=== PATIENT | male | born 1965 | race American Indian/Alaskan Native ===

== ENCOUNTER 2017-07-07 12:30 | Emergency (ER) | payer MEDICARE, OTHER ==
[2017-07-07] MEDS ORDERED: NORCO 5/325 PO ONE (14:09)
[2017-07-07 14:31] LABS: Basophils # (Auto) 0.1 K/mm3 (0.0-0.1); Basophils % (Auto) 1.1 % (0.0-1.8); Eosinophils # (Auto) 0.2 K/mm3 (0.0-0.4); Eosinophils % (Auto) 3.3 % (0.0-4.3); Hematocrit 40.4 % (35.5-45.6); Hemoglobin 13.3 gm/dl (11.8-15.2); Lymphocytes # (Auto) 1.6 K/mm3 (1.2-5.4); Lymphocytes % (Auto) 22.9 % (13.4-35.0); Mean Corpuscular HGB Conc 33 % (32-34); Mean Corpuscular Hemoglobin 27 pg (28-32); Mean Corpuscular Volume 83 fl (84-94); Monocytes # (Auto) 0.9 K/mm3 (0.0-0.8); Monocytes % (Auto) 12.7 % (0.0-7.3); Platelet Count 298 K/mm3 (140-440); Red Blood Count 4.89 M/mm3 (3.65-5.03); Red Cell Distribution Width 14.2 % (13.2-15.2)
[2017-07-07] MEDS ORDERED: NACL ONE (14:40)
[2017-07-07 14:49] LABS: Calcium 9.3 mg/dL (8.4-10.2)
[2017-07-07] MEDS ORDERED: NACL 0.9% 1000 ML 1,000 ML IV ONE (16:14)
--- NOTE | 2017-07-07 16:18 | Emergency Department Report ---
HPI - HPI HPI: The patient is a 51-year-old male with a history of CK D, chronic back pain, and CAD with stent placement one week ago, whom presents for evaluation of swelling and pain to the back. The patient reports a few area of swelling and pain to the left mid back for the past 2-3 weeks. He states that the pain and swelling have improved but have been constant. His pain is Currently mild to moderate in severity, sharp in quality, exacerbated with lying on the back. The patient denies blunt trauma to the back, fall, chest pain, dyspnea, abdominal pain, fever, chills, night sweats, saddle anesthesia, paresthesias, numbness or tingling in the legs, leg weakness, urine or bowel incontinence or retention, difficulty ambulating, or other focal neurological deficits. <KALYN PEREZ - Last Filed: 07/07/17 17:32> <MARBELLA GARZA - Last Filed: 07/07/17 21:43> - General Chief Complaint: Back Pain/Injury Time Seen by Provider: 07/07/17 13:28 ED Past Medical Hx - Past Medical History Hx Hypertension: Yes Hx Psychiatric Treatment: Yes (depression) Additional medical history: elevated cholesterol,neuropathy,insomnia - Surgical History Additional Surgical History: heart attack 07/02/2017 with stent, T 7-11 back surgery,c4-5 surgery - Social History Smoking Status: Current Every Day Smoker Substance Use Type: Alcohol <KALYN PEREZ - Last Filed: 07/07/17 17:32> <MARBELLA GARZA - Last Filed: 07/07/17 21:43> - Medications Home Medications: Home Medications Medication Instructions Recorded Confirmed Last Taken Type Acetaminophen/Codeine [Tylenol 1 tab PO Q6H PRN #10 tab 07/07/17 Unknown Rx /Codeine # 3 tab] Sulfamethoxazole/Trimethoprim 1 each PO BID #14 tablet 07/07/17 Unknown Rx [Bactrim DS TAB] ED Review of Systems ROS: Stated complaint: BACK PAIN Other details as noted in HPI Constitutional: denies: fever ENT: denies: throat or neck pain Respiratory: denies: cough, shortness of breath Cardiovascular: denies: chest pain Endocrine: denies unexplained weight loss or gain Gastrointestinal: denies: abdominal pain, nausea Genitourinary: denies: dysuria Musculoskeletal: reports back pain denies: leg swelling Skin: denies: rash Neurological: denies: headache Hematological/Lymphatic: denies: easy bleeding or easy bruising Psych: denies sadness or hopelessness <KALYN PEREZ P - Last Filed: 07/07/17 17:32> ROS: Stated complaint: BACK PAIN Other details as noted in HPI <MARBELLA GARZA - Last Filed: 07/07/17 21:43> Physical Exam - Physical Exam Vital Signs: Vital Signs 07/07/17 07/07/17 12:33 13:38 Temperature 98.6 F 98.3 F Pulse Rate 76 71 Respiratory 18 16 Rate Blood Pressure 109/65 Blood Pressure 116/69 [Left] O2 Sat by Pulse 100 97 Oximetry Physical Exam: General: well-nourished, well-developed, no acute distress Head: Normocephalic, atraumatic Eyes: normal sclera ENT: Mucous membranes are pink and moist Neck: trachea midline, neck supple, No neck stiffness, no cervical adenopathy Respiratory: Breath sounds equal bilaterally, no wheezing, rales, or rhonchi Cardio: S1 and S2 present, no murmurs, rubs, gallops, capillary refill is brisk Abdomen: Normoactive bowel sounds, soft abdomen, no rigidity, no guarding or rebound tenderness Chest WALL/Back: No tenderness to palpation of the chest wall, approximately 5 cm x 5cm area of swelling left of the and mild hyperpigmentation midline of the mid thoracic back, no open wound or drainage, Musc: No pitting edema Skin: No rash Neuro: no facial drooping, normal speech Psych: Normal affect <KALYN PEREZ P - Last Filed: 07/07/17 17:32> - Physical Exam Vital Signs: Vital Signs 07/07/17 07/07/17 07/07/17 12:33 13:32 13:38 Temperature 98.6 F 98.3 F Pulse Rate 76 71 Respiratory 18 16 Rate Blood Pressure 109/65 Blood Pressure 116/69 [Left] O2 Sat by Pulse 100 98 97 Oximetry 07/07/17 07/07/17 07/07/17 13:45 14:00 14:15 Temperature Pulse Rate 58 L Respiratory Rate Blood Pressure 116/69 112/64 112/64 Blood Pressure [Left] O2 Sat by Pulse 96 96 99 Oximetry 07/07/17 07/07/17 07/07/17 14:31 14:45 15:00 Temperature Pulse Rate 60 59 L Respiratory 8 L 20 Rate Blood Pressure 112/64 116/69 112/64 Blood Pressure [Left] O2 Sat by Pulse 99 Oximetry 07/07/17 07/07/17 07/07/17 15:15 15:31 15:45 Temperature Pulse Rate 64 61 58 L Respiratory 25 H 22 24 Rate Blood Pressure 112/64 112/64 112/64 Blood Pressure [Left] O2 Sat by Pulse Oximetry 07/07/17 07/07/17 07/07/17 16:00 16:15 16:31 Temperature Pulse Rate 58 L 56 L 61 Respiratory 14 22 19 Rate Blood Pressure 116/69 116/69 116/69 Blood Pressure [Left] O2 Sat by Pulse 94 Oximetry 07/07/17 07/07/17 07/07/17 16:45 17:00 17:15 Temperature Pulse Rate 64 56 L 58 L Respiratory 18 20 12 Rate Blood Pressure 116/69 128/73 116/69 Blood Pressure [Left] O2 Sat by Pulse 96 96 97 Oximetry 07/07/17 07/07/17 07/07/17 18:37 18:46 19:01 Temperature Pulse Rate 58 L 56 L 58 L Respiratory 17 19 13 Rate Blood Pressure 130/83 130/83 143/84 Blood Pressure [Left] O2 Sat by Pulse 96 96 95 Oximetry <MARBELLA GARZA - Last Filed: 07/07/17 21:43> ED Course Vital Signs 07/07/17 07/07/17 12:33 13:38 Temperature 98.6 F 98.3 F Pulse Rate 76 71 Respiratory 18 16 Rate Blood Pressure 109/65 Blood Pressure 116/69 [Left] O2 Sat by Pulse 100 97 Oximetry <KALYN PEREZ - Last Filed: 07/07/17 17:32> Vital Signs 07/07/17 07/07/17 07/07/17 12:33 13:32 13:38 Temperature 98.6 F 98.3 F Pulse Rate 76 71 Respiratory 18 16 Rate Blood Pressure 109/65 Blood Pressure 116/69 [Left] O2 Sat by Pulse 100 98 97 Oximetry 07/07/17 07/07/17 07/07/17 13:45 14:00 14:15 Temperature Pulse Rate 58 L Respiratory Rate Blood Pressure 116/69 112/64 112/64 Blood Pressure [Left] O2 Sat by Pulse 96 96 99 Oximetry 07/07/17 07/07/17 07/07/17 14:31 14:45 15:00 Temperature Pulse Rate 60 59 L Respiratory 8 L 20 Rate Blood Pressure 112/64 116/69 112/64 Blood Pressure [Left] O2 Sat by Pulse 99 Oximetry 07/07/17 07/07/17 07/07/17 15:15 15:31 15:45 Temperature Pulse Rate 64 61 58 L Respiratory 25 H 22 24 Rate Blood Pressure 112/64 112/64 112/64 Blood Pressure [Left] O2 Sat by Pulse Oximetry 07/07/17 07/07/17 07/07/17 16:00 16:15 16:31 Temperature Pulse Rate 58 L 56 L 61 Respiratory 14 22 19 Rate Blood Pressure 116/69 116/69 116/69 Blood Pressure [Left] O2 Sat by Pulse 94 Oximetry 07/07/17 07/07/17 07/07/17 16:45 17:00 17:15 Temperature Pulse Rate 64 56 L 58 L Respiratory 18 20 12 Rate Blood Pressure 116/69 128/73 116/69 Blood Pressure [Left] O2 Sat by Pulse 96 96 97 Oximetry 07/07/17 07/07/17 07/07/17 18:37 18:46 19:01 Temperature Pulse Rate 58 L 56 L 58 L Respiratory 17 19 13 Rate Blood Pressure 130/83 130/83 143/84 Blood Pressure [Left] O2 Sat by Pulse 96 96 95 Oximetry <MARBELLA GARZA - Last Filed: 07/07/17 21:43> - I & D Back Type of Procedure: Simple Site: mid back Blade Size: 11 I & D Procedure: betadine prep, sterile drapes applied, gauze wick placed Progress: Patient was infected sebaceous cyst CT showed abscess, patient was consented for I&D informed of risks including infection bleeding, he was prepped with sterile prep 15 mL's of 1% lidocaine plain with 11 blade with removal of pus pocket and some sebaceous material patient tolerated w/o com[p. <MARBELLA GARZA - Last Filed: 07/07/17 21:43> ED Medical Decision Making - Lab Data Result diagrams: 07/07/17 14:20 07/07/17 14:20 - Medical Decision Making The patient was seen and examined by myself. The patient is placed on a manager cardiac and continuous pulse ox. On initial evaluation, the patient was found to be in no distress. Evaluation orders were placed. The patient was given pain medicine. Lab results revealed mildly elevated creatinine of 1.7, grossly a patient baseline of 1.5-1.6. The patient is given 1 L normal saline fluid bolus for treatment of dehydration and elevated creatinine. CT scan of the back is pending <KALYN PEREZ - Last Filed: 07/07/17 17:32> - Lab Data Result diagrams: 07/07/17 14:20 07/07/17 14:20 - Radiology Data Radiology results: report reviewed - Medical Decision Making CT shows abscess patient was verbally consented abscess was drained is consistent with infected sebaceous cyst we did remove the pus and some of the sebaceous material he will need follow-up with surgery here we placed on antibiotics <MARBELLA GARZA - Last Filed: 07/07/17 21:43> Critical care attestation.: If time is entered above; I have spent that time in minutes in the direct care of this critically ill patient, excluding procedure time. <KALYN PEREZ - Last Filed: 07/07/17 17:32> Critical care attestation.: If time is entered above; I have spent that time in minutes in the direct care of this critically ill patient, excluding procedure time. <MARBELLA GARZA - Last Filed: 07/07/17 21:43> ED Disposition Is pt being admited?: No Does the pt Need Aspirin: No Time of Disposition: 17:36 <KALYN PEREZ - Last Filed: 07/07/17 17:32> Is pt being admited?: No <MARBELLA GARZA - Last Filed: 07/07/17 21:43> Clinical Impression: Infected sebaceous cyst, Status post incision and drainage Disposition: - TO HOME OR SELFCARE Condition: Stable Instructions: Abscess (ED) Additional Instructions: See the doctor listed return immediately if new alarming symptoms medicines as directed Prescriptions: Acetaminophen/Codeine [Tylenol /Codeine # 3 tab] 1 tab PO Q6H PRN #10 tab PRN Reason: Pain Sulfamethoxazole/Trimethoprim [Bactrim DS TAB] 1 each PO BID #14 tablet Referrals: PRIMARY CARE,MD [Primary Care Provider] - 3-5 Days
--- NOTE | 2017-07-07 19:19 | Cat Scan Report ---
FINAL REPORT PROCEDURE: CT THORACIC SPINE W CON TECHNIQUE: Computerized axial tomography of the thoracic spine was performed from C7 - L1 without contrast material. HISTORY: midback mass and pain for 3-4 weeks COMPARISON: No prior studies are available for comparison. FINDINGS: Vertebral alignment and height are within normal limits with normal intervertebral disc spaces. An acute fracture is not identified. Pre and paravertebral soft tissues are within normal limits. Visualized bilateral lungs are clear. Osteophyte formation is noted involving multiple bilateral costovertebral joints. At T2-3 there is a broad-based disc osteophyte complex eccentric to the left resulting in mild degree left lateral recess stenosis. T3-4 disc level is unremarkable. T4-5 disc level is unremarkable. At T5-6 there is mild degree left neural foraminal stenosis secondary to facet degenerative changes. At T6-7 no significant spinal canal or neural foraminal compromise is noted. A T7-8 moderate degree left lateral recess and left neural foraminal stenosis is noted secondary to marginal osteophytes. At T8-9 mild degree right lateral recess and right neural foraminal stenosis secondary to marginal osteophyte formation. At T9-10 moderate degree bilateral lateral recesses and the neural foraminal stenosis is noted secondary to marginal osteophyte formation in the calcification of ligamenta flava. At T10-11 there is evidence of prior T10 laminectomy. Moderate to severe degree bilateral neural foraminal stenosis is noted secondary to bilateral facet arthropathy. At T11-12 there is mild degree right neural foraminal stenosis secondary to facet degenerative changes and ossification of ligamenta flava. 3.7 x 2.7 centimeter well-defined fluid collection is noted in the subcutaneous plane of the left posterior aspect at the level of T10 -11. IMPRESSION: Multilevel thoracic spondylosis as described above. A well-defined fluid collection in the subcutaneous plane of left posterior aspect most likely represents an abscess.
[2017-07-07] MEDS ORDERED: BOOSTRIX IM ONE (20:10)
[2017-07-07] MEDS ORDERED: ATIVAN PO ONE (20:11)
[2017-07-07] MEDS ORDERED: XYLOCAINE 1% 20 mL INFILTRATI ONE (20:11)
[2017-07-07 21:58] VITALS: BP 138/81
== END 2017-07-07 22:13 | disposition home or self-care (01) ==
LOC: ED 12:30
DX: L02.212 Cutaneous abscess of back [any part, except buttock and flank] (principal); L72.3 Sebaceous cyst
CPT/HCPCS: 10060; 36415; 72129; 80048; 83880; 85025; 90471; 90715; 93005; 93010; 96360; 99284; J7030; Q9967

== ENCOUNTER 2017-07-17 07:57 | Emergency (ER) | payer MEDICARE, OTHER ==
[2017-07-17 08:04] VITALS: BP 121/75
--- NOTE | 2017-07-17 10:21 | Emergency Department Report ---
Abscess Boil HPI - HPI Chief Complaint: Skin/Abscess/Foreign Body Stated Complaint: POSS INFECTED CYST Time Seen by Provider: 07/17/17 10:17 Duration: >1 Week Location: Back Severity: Mild History: Yes Previous History (Reports abscess on left back drained in the ER on Jul 07. Completed course of bactrim. Reports symptom improvement presenting today for wound recheck), No Fever, No Pain, No Purulent Drainage, No Numbness, No Foreign Body, No Insect Bite Home Medications: Previous Rx's Medication Instructions Recorded Last Taken Type Acetaminophen/Codeine [Tylenol 1 tab PO Q6H PRN #10 tab 07/07/17 Unknown Rx /Codeine # 3 tab] Sulfamethoxazole/Trimethoprim 1 each PO BID #14 tablet 07/07/17 Unknown Rx [Bactrim DS TAB] Cephalexin [Keflex] 500 mg PO Q12HR 10 Days #20 cap 07/17/17 Unknown Rx Allergies/Adverse Reactions: Allergies Allergy/AdvReac Type Severity Reaction Status Date / Time No Known Allergies Allergy Verified 07/17/17 08:01 ED Review of Systems ROS: Stated complaint: POSS INFECTED CYST Other details as noted in HPI Comment: All other systems reviewed and negative Cardiovascular: other (Reports an AL on Jul 01 followed by cardiology. Reports on brillinta) ED Past Medical Hx - Past Medical History Hx Hypertension: Yes Hx Heart Attack/AMI: Yes Hx Psychiatric Treatment: Yes (depression) Additional medical history: elevated cholesterol,neuropathy,insomnia - Surgical History Additional Surgical History: stent, T 7-11 back surgery,c4-5 surgery - Social History Smoking Status: Current Every Day Smoker Substance Use Type: None - Medications Home Medications: Home Medications Medication Instructions Recorded Confirmed Last Taken Type Acetaminophen/Codeine [Tylenol 1 tab PO Q6H PRN #10 tab 07/07/17 Unknown Rx /Codeine # 3 tab] Sulfamethoxazole/Trimethoprim 1 each PO BID #14 tablet 07/07/17 Unknown Rx [Bactrim DS TAB] Cephalexin [Keflex] 500 mg PO Q12HR 10 Days #20 cap 07/17/17 Unknown Rx ED Abscess Boil Physical Exam - Exam General: Vital signs noted. No distress. Alert and acting appropriately. Size: 3 cm Exam: Yes Surrounding Cellulites/Erythema, Yes Normal Neurologic Exam, Yes Normal Circulation, No Tenderness, No Fluctuance, No Lymphangitis, No Crepitation ED Course Vital Signs 07/17/17 08:01 Temperature 98.8 F Pulse Rate 68 Respiratory 16 Rate Blood Pressure 121/75 O2 Sat by Pulse 100 Oximetry Critical care attestation.: If time is entered above; I have spent that time in minutes in the direct care of this critically ill patient, excluding procedure time. ED Medical Decision Making - Medical Decision Making Patient comfortable. Plan discharge with outpatient follow up. Patient agrees with plan and will return if symptoms worsen. ED Disposition Clinical Impression: Cellulitis Qualifiers: Site of cellulitis: other site Qualified Code(s): L03.818 - Cellulitis of other sites Disposition: DC-01 TO HOME OR SELFCARE Is pt being admited?: No Condition: Stable Instructions: Cellulitis (ED) Prescriptions: Cephalexin [Keflex] 500 mg PO Q12HR 10 Days #20 cap Referrals: [facility] [Outside] - 2-3 Days [facility] [Outside] - 2-3 Days Time of Disposition: 10:21
== END 2017-07-17 10:30 | disposition home or self-care (01) ==
LOC: ED 07:57
DX: L03.312 Cellulitis of back [any part except buttock and flank] (principal); I10 Essential (primary) hypertension; I25.2 Old myocardial infarction; E78.00 Pure hypercholesterolemia, unspecified; F17.200 Nicotine dependence, unspecified, uncomplicated; G62.9 Polyneuropathy, unspecified
CPT/HCPCS: 99281

== ENCOUNTER 2018-10-15 05:58 | Day surgery (SDC) | payer MEDICARE, OTHER ==
--- NOTE | 2018-10-15 07:13 | Anesthesia Day of Surgery ---
Anesthesia Day of Surgery - Day of Surgery Patient Examined: Yes Patient H&P Reviewed: Yes Patient is NPO: Yes
--- NOTE | 2018-10-15 07:14 | Anesthesia Consultation ---
Anesthesia Consult and Med Hx Date of service: 10/15/18 - Airway Anesthetic Teeth Evaluation: Good ROM Head & Neck: Adequate Mental/Hyoid Distance: Adequate Mallampati Class: Class II Intubation Access Assessment: Probably Good - Pulmonary Exam CTA: Yes - Cardiac Exam Cardiac Exam: RRR - Pre-Operative Health Status ASA Pre-Surgery Classification: ASA3 Proposed Anesthetic Plan: MAC - Pulmonary SOB: Yes - Cardiovascular System Hx Hypertension: Yes Hx Heart Attack/AMI: Yes
[2018-10-15] MEDS ORDERED: NACL 0.9% 1000 ML 1,000 ML IV SCH (08:00)
[2018-10-15] MEDS ORDERED: XYLOCAINE 2% INFILTRATI ONE (08:13)
[2018-10-15] MEDS ORDERED: DIPRIVAN 10 MG/ML IV ONE ×2 (08:13)
[2018-10-15] MEDS ORDERED: VERSED ONE (08:13)
[2018-10-15 11:14] VITALS: BP 125/83
== END 2018-10-15 05:59 | disposition home or self-care (01) ==
LOC: GIO 05:58
PROVIDERS: ATTEND Internal Medicine Gastroenterology
DX: Z12.11 Encounter for screening for malignant neoplasm of colon (principal); K63.5 Polyp of colon; K64.8 Other hemorrhoids; K31.89 Other diseases of stomach and duodenum; I11.0 Hypertensive heart disease with heart failure; I50.9 Heart failure, unspecified; E78.00 Pure hypercholesterolemia, unspecified; G47.30 Sleep apnea, unspecified; K21.9 Gastro-esophageal reflux disease without esophagitis; F32.9 Major depressive disorder, single episode, unspecified; Z98.890 Other specified postprocedural states; Z79.899 Other long term (current) drug therapy; Z79.82 Long term (current) use of aspirin; Z87.891 Personal history of nicotine dependence
CPT/HCPCS: 45380; 88305; J2250; J2704; J7030

== ENCOUNTER 2018-10-17 16:46 | Outpatient (CLI) | payer MEDICARE, OTHER ==
[2018-10-17 17:33] LABS: Hematocrit 43.5 % (35.5-45.6); Hemoglobin 14.5 gm/dl (11.8-15.2); Mean Corpuscular HGB Conc 33 % (32-34); Mean Corpuscular Volume 84 fl (84-94); Platelet Count 201 K/mm3 (140-440); Red Blood Count 5.17 M/mm3 (3.65-5.03)
[2018-10-17 17:50] LABS: Alanine Aminotransferase 15 units/L (7-56); Albumin 4.1 g/dL (3.9-5); BUN/Creatinine Ratio 12; Blood Urea Nitrogen 16 mg/dL (9-20); Calcium 9.2 mg/dL (8.4-10.2); Hemolysis Index 11
[2018-10-17 18:08] LABS: Erythrocyte Sedimentation Rate 6 mm/Hr (0-20)
[2018-10-22 09:26] LABS: Vitamin D, 25-OH, D2 <4 ng/mL
[2018-10-24 13:05] LABS: ANA Screen, IFA Negative (Negative)
== END 2018-10-17 16:47 | disposition home or self-care (01) ==
LOC: LAB 16:46
PROVIDERS: ATTEND Specialist
DX: G95.9 Disease of spinal cord, unspecified (principal); E08.42 Diabetes mellitus due to underlying condition with diabetic polyneuropathy; I11.0 Hypertensive heart disease with heart failure; I50.9 Heart failure, unspecified; E78.00 Pure hypercholesterolemia, unspecified; K21.9 Gastro-esophageal reflux disease without esophagitis
CPT/HCPCS: 36415; 80053; 82306; 82607; 83921; 84443; 85027; 85652; 86038; 86225; 86334; 86592; 86618; 87806

== ENCOUNTER 2020-10-27 06:42 | Emergency (ER) | payer MEDICARE, OTHER ==
[2020-10-27] MEDS ORDERED: oxyCODONE /ACETAMINOPHEN 5-325MG TAB PO ONE (09:32)
--- NOTE | 2020-10-27 09:38 | Emergency Department Report ---
ED General Adult HPI - General Chief complaint: Fall Stated complaint: FALL LOWER BACK INJURY Time Seen by Provider: 10/27/20 08:48 Source: patient Mode of arrival: Ambulatory Limitations: No Limitations - History of Present Illness Initial comments: 55-year-old -Luxembourger male patient presents with complaints of left posterior back pain after a fall injury yesterday. Patient states he slipped and fell on wooden stairs hitting the left side of his back. He rates his pain as a 9/10 in severity. He states he took some leftover hydrocodone and it is not helping. He denies any shortness of breath, chest pain, abdominal pain, nausea/vomiting, head injury, loss of consciousness, or dizziness. -: Sudden - Related Data Home Medications Medication Instructions Recorded Confirmed Last Taken Aspirin BABY CHEW TAB 81 mg PO DAILY 10/15/18 10/15/18 10/13/18 Brilinta 90 mg PO BID 10/15/18 10/15/18 10/13/18 Carvedilol 12.5 mg PO BID 10/15/18 10/15/18 10/15/18 Isosorbide Dinitrate 30 mg PO DAILY 10/15/18 10/15/18 10/15/18 Losartan-Hctz 100-25 mg Tab 1 tab PO DAILY 10/15/18 10/15/18 10/15/18 Omeprazole 20 mg PO DAILY 10/15/18 10/15/18 10/15/18 Potassium [place] 10 meq PO BID 10/15/18 10/15/18 10/15/18 amLODIPine 10 mg PO DAILY 10/15/18 10/15/18 10/15/18 hydrALAZINE 50 mg PO BID 10/15/18 10/15/18 10/15/18 Previous Rx's Medication Instructions Recorded Last Taken Type Acetaminophen/Codeine [Tylenol 1 tab PO Q8H PRN #10 tab 10/27/20 Unknown Rx /Codeine # 3 tab] methocarbamoL [Methocarbamol] 750 - 1,500 mg PO TID PRN #22 10/27/20 Unknown Rx tablet Allergies Allergy/AdvReac Type Severity Reaction Status Date / Time No Known Allergies Allergy Verified 07/17/17 08:01 ED Review of Systems ROS: Stated complaint: FALL LOWER BACK INJURY Other details as noted in HPI Constitutional: denies: malaise Respiratory: denies: shortness of breath Cardiovascular: denies: chest pain Gastrointestinal: denies: abdominal pain Genitourinary: denies: urgency, dysuria, frequency, hematuria, discharge Musculoskeletal: back pain ED Past Medical Hx - Past Medical History Previous Medical History?: Yes Hx Hypertension: Yes Hx Heart Attack/AMI: Yes Hx Congestive Heart Failure: Yes Hx GERD: Yes Hx Psychiatric Treatment: Yes (depression) Additional medical history: elevated cholesterol,neuropathy,insomnia - Surgical History Past Surgical History?: Yes Additional Surgical History: stent, T 7-11 back surgery, c4-5 surgery - Social History Smoking Status: Current Every Day Smoker Substance Use Type: None - Medications Home Medications: Home Medications Medication Instructions Recorded Confirmed Last Taken Type Aspirin BABY CHEW TAB 81 mg PO DAILY 10/15/18 10/15/18 10/13/18 History Brilinta 90 mg PO BID 10/15/18 10/15/18 10/13/18 History Carvedilol 12.5 mg PO BID 10/15/18 10/15/18 10/15/18 History Isosorbide Dinitrate 30 mg PO DAILY 10/15/18 10/15/18 10/15/18 History Losartan-Hctz 100-25 mg Tab 1 tab PO DAILY 10/15/18 10/15/18 10/15/18 History Omeprazole 20 mg PO DAILY 10/15/18 10/15/18 10/15/18 History Potassium [place] 10 meq PO BID 10/15/18 10/15/18 10/15/18 History amLODIPine 10 mg PO DAILY 10/15/18 10/15/18 10/15/18 History hydrALAZINE 50 mg PO BID 10/15/18 10/15/18 10/15/18 History Acetaminophen/Codeine [Tylenol 1 tab PO Q8H PRN #10 tab 10/27/20 Unknown Rx /Codeine # 3 tab] methocarbamoL [Methocarbamol] 750 - 1,500 mg PO TID PRN #22 10/27/20 Unknown Rx tablet ED Physical Exam - General Limitations: No Limitations General appearance: alert, in no apparent distress - Head Head exam: Present: atraumatic, normocephalic - Eye Eye exam: Present: normal appearance. Absent: scleral icterus - Neck Neck exam: Present: normal inspection - Respiratory Respiratory exam: Present: normal lung sounds bilaterally. Absent: respiratory distress - Cardiovascular Cardiovascular Exam: Present: regular rate, normal rhythm - GI/Abdominal GI/Abdominal exam: Present: soft. Absent: distended, tenderness - Back Exam Back exam: Present: other (Tenderness to palpation noted over the posterior left lower rib area with mild bruising and swelling) - Neurological Exam Neurological exam: Present: alert, oriented X3, normal gait - Psychiatric Psychiatric exam: Present: normal affect, normal mood - Skin Skin exam: Present: warm, dry, intact. Absent: rash ED Course Vital Signs 10/27/20 10/27/20 10/27/20 06:45 09:17 11:44 Temperature 99.1 F 97.9 F Pulse Rate 64 88 Respiratory 18 20 Rate Blood Pressure 193/106 Blood Pressure 199/100 [Left] O2 Sat by Pulse 95 97 100 Oximetry ED Medical Decision Making - Radiology Data Radiology results: report reviewed Left rib series, 5 views HISTORY: Fall COMPARISON: None FINDINGS: Lungs are clear. No pleural effusion or pneumothorax. Heart size is within normal limits. No acute osseous findings. No acute or healing displaced rib fracture. - Medical Decision Making 55-year-old -Lux[place] male patient presents with complaints of left posterior back pain after a fall injury yesterday. Patient states he slipped and fell on wooden stairs hitting the left side of his back. He rates his pain as a 9/10 in severity. He states he took some leftover hydrocodone and it is not helping. He denies any shortness of breath, chest pain, abdominal pain, nausea/vomiting, head injury, loss of consciousness, or dizziness. On exam, there is tenderness to palpation of the left posterior lower ribs with mild swelling and mild bruising. No abdominal tenderness to palpation is noted or vertebral tenderness/deformities. X-ray of the rib is negative for any acute bony abnormality in the lung is normal. Will treat for rib contusion with pain meds, muscle relaxers, and icing. Discussed importance of deep breathing exercises to prevent atelectasis and pneumonia. Recommend follow-up with PCP in 2 to 3 days. Discussed in detail signs and symptoms that should prompt immediate return to the emergency department in detail patient verbalizes understanding. Blood pressure noted to be elevated. Repeat BP is 196/100. Patient has history of hypertension and states he has not taking his blood pressure medications today. He denies any neurologic symptoms or headache and is neurologically intact on exam. Critical care attestation.: If time is entered above; I have spent that time in minutes in the direct care of this critically ill patient, excluding procedure time. ED Disposition Clinical Impression: Contusion of rib on left side Disposition: - TO HOME OR SELFCARE Is pt being admited?: No Condition: Stable Instructions: Rib Contusion Prescriptions: methocarbamoL [Methocarbamol] 750 - 1,500 mg PO TID PRN #22 tablet PRN Reason: muscle spasm/tightness Acetaminophen/Codeine [Tylenol /Codeine # 3 tab] 1 tab PO Q8H PRN #10 tab PRN Reason: Pain , Severe (7-10) Referrals: MIGUE MATHUR NP [Primary Care Provider] - 2-3 Days Forms: Work/School Release Form(ED)
--- NOTE | 2020-10-27 10:07 | XRay Report ---
Left rib series, 5 views HISTORY: Fall COMPARISON: None FINDINGS: Lungs are clear. No pleural effusion or pneumothorax. Heart size is within normal limits. N o acute osseous findings. No acute or healing displaced rib fracture. Signer Name: Celso Sosa MD Signed: 10/27/2020 10:03 AM Workstation Name: [id number]
[2020-10-27] MEDS ORDERED: ONDANSETRON 4 MG ODT TAB PO ONE (11:33)
[2020-10-27 11:46] VITALS: BP 199/100
== END 2020-10-27 11:45 | disposition home or self-care (01) ==
LOC: ED 06:42
DX: S20.212A Contusion of left front wall of thorax, initial encounter (principal); I11.0 Hypertensive heart disease with heart failure; K21.9 Gastro-esophageal reflux disease without esophagitis; F32.9 Major depressive disorder, single episode, unspecified; E78.00 Pure hypercholesterolemia, unspecified; G62.9 Polyneuropathy, unspecified; G47.00 Insomnia, unspecified; F17.200 Nicotine dependence, unspecified, uncomplicated; Z98.890 Other specified postprocedural states; X58.XXXA Exposure to other specified factors, initial encounter; Y93.89 Activity, other specified; Y92.89 Other specified places as the place of occurrence of the external cause; Y99.8 Other external cause status
CPT/HCPCS: 99283; Q0162

== ENCOUNTER 2021-10-10 13:22 | Emergency (ER) | payer MEDICARE, OTHER ==
[2021-10-10] MEDS ORDERED: SODIUM CHLORIDE 0.9% 1000 ML 1,000 ML IV ONE (14:26)
[2021-10-10] MEDS ORDERED: hydrALAZINE 20 MG/1 ML INJ IV ONE (14:27)
--- NOTE | 2021-10-10 15:53 | Cat Scan Report ---
CT lumbar spine wo con INDICATION: pain. TECHNIQUE: Axial CT images of the lumbar spine were obtained. Sagittal and coronal reformatted images were produ kay. All CT scans at this location are performed using CT dose reduction for ALARA by means of automa madai exposure control. COMPARISON: None available. FINDINGS: ALIGNMENT: Normal alignment. VERTEBRAE: No fracture. Vertebral body heights are preserved. SPONDYLOSIS: Mild multilevel spondylosis without high-grade spinal canal or foraminal stenosis. SOFT TISSUES: No significant soft tissue abnormality. ADDITIONAL FINDINGS: No significant additional findings. IMPRESSION: 1. No acute lumbar spine abnormality. Signer Name: Delano Beckman MD Signed: 10/10/2021 3:48 PM Workstation Name: [id number]
[2021-10-10 16:11] LABS: Basophils # (Auto) 0.1 K/mm3 (0.0-0.1); Basophils % (Auto) 0.8 % (0.0-1.8); Eosinophils % (Auto) 0.6 % (0.0-4.3); Hematocrit 40.9 % (35.5-45.6); Hemoglobin 13.6 gm/dl (11.8-15.2); Lymphocytes # (Auto) 1.3 K/mm3 (1.2-5.4); Lymphocytes % (Auto) 15.9 % (13.4-35.0); Mean Corpuscular HGB Conc 33 % (32-34); Mean Corpuscular Volume 84 fl (84-94); Monocytes # (Auto) 0.8 K/mm3 (0.0-0.8); Platelet Count 226 K/mm3 (140-440); Red Blood Count 4.88 M/mm3 (3.65-5.03); Red Cell Distribution Width 15.7 % (13.2-15.2)
[2021-10-10] MEDS ORDERED: ONDANSETRON 4 MG/2 ML INJ IV ONE (16:13)
[2021-10-10] MEDS ORDERED: ONDANSETRON 4 MG/2 ML INJ ONE (16:14)
[2021-10-10 16:32] LABS: Albumin 4.2 g/dL (3.9-5); Calcium 9.4 mg/dL (8.4-10.2)
[2021-10-10 16:43] LABS: Chol/HDL Ratio 4.82 %
[2021-10-10] MEDS ORDERED: METOPROLOL TARTRATE 5 MG/5 ML INJ IV ONE (16:51)
[2021-10-10] MEDS ORDERED: dilTIAZem 25 MG/5 ML INJ IV ONE (16:58)
[2021-10-10] MEDS ORDERED: NEOMY 3.5 MG/BACIT 400 UNITS/POLY B 5000 UNITS/GM OINT PACKET TP ONE (17:37)
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
[2021-10-10 22:05] VITALS: BP 207/117
== END 2021-10-10 22:05 | disposition home or self-care (01) ==
LOC: ED 13:22
DX: I10 Essential (primary) hypertension (principal); S00.83XA Contusion of other part of head, initial encounter; S13.9XXA Sprain of joints and ligaments of unspecified parts of neck, initial encounter; S13.4XXA Sprain of ligaments of cervical spine, initial encounter; I13.0 Hypertensive heart and chronic kidney disease with heart failure and stage 1 through stage 4 chronic kidney disease, or unspecified chronic kidney disease; K21.9 Gastro-esophageal reflux disease without esophagitis; I50.9 Heart failure, unspecified; I21.9 Acute myocardial infarction, unspecified; E11.22 Type 2 diabetes mellitus with diabetic chronic kidney disease; N18.30 Chronic kidney disease, stage 3 unspecified; F32.A Depression, unspecified; Z98.890 Other specified postprocedural states; Z79.899 Other long term (current) drug therapy; V89.2XXA Person injured in unspecified motor-vehicle accident, traffic, initial encounter; Y93.89 Activity, other specified; Y92.89 Other specified places as the place of occurrence of the external cause; Y99.8 Other external cause status
CPT/HCPCS: 36415; 72125; 72131; 80053; 80061; 82550; 84484; 85025; 96361; 96374; 96375; 99284; J0360; J2405; J3490; J7030

== ENCOUNTER 2021-11-23 08:20 | Inpatient (IN) | payer MEDICARE, OTHER ==
--- NOTE | 2021-11-23 09:33 | XRay Report ---
CHEST 2 VIEWS INDICATION / CLINICAL INFORMATION: Chest Pain. COMPARISON: 07/17/2021 FINDINGS: SUPPORT DEVICES: None. HEART / MEDIASTINUM: Stable mild cardiomegaly LUNGS / PLEURA: There is mild diffuse interstitial prominence throughout both lungs most consistent w ith interstitial edema. No consolidation, significant pleural effusion or pneumothorax. Previously de scribed patchy airspace disease in the left midlung has resolved. ADDITIONAL FINDINGS: No significant additional findings. IMPRESSION: 1. Mild cardiomegaly and pulmonary vascular congestion is suspected. Signer Name: Adama Gutierrez Jr, MD Signed: 11/23/2021 9:28 AM Workstation Name: [id number]
[2021-11-23 10:12] LABS: Basophils # (Auto) 0.1 K/mm3 (0.0-0.1); Basophils % (Auto) 0.8 % (0.0-1.8); Eosinophils # (Auto) 0.2 K/mm3 (0.0-0.4); Eosinophils % (Auto) 2.9 % (0.0-4.3); Hematocrit 35.3 % (35.5-45.6); Hemoglobin 11.8 gm/dl (11.8-15.2); Lymphocytes # (Auto) 1.1 K/mm3 (1.2-5.4); Lymphocytes % (Auto) 18.4 % (13.4-35.0); Mean Corpuscular HGB Conc 33 % (32-34); Mean Corpuscular Volume 84 fl (84-94); Monocytes # (Auto) 0.6 K/mm3 (0.0-0.8); Monocytes % (Auto) 9.2 % (0.0-7.3); Platelet Count 162 K/mm3 (140-440); Red Blood Count 4.23 M/mm3 (3.65-5.03); Red Cell Distribution Width 14.8 % (13.2-15.2)
[2021-11-23 10:23] LABS: Albumin 3.9 g/dL (3.9-5); Calcium 8.9 mg/dL (8.4-10.2); INR 0.92 (0.87-1.13)
[2021-11-23 10:24] LABS: Partial Thromboplastin Time 42.4 Sec. (24.2-36.6)
[2021-11-23 10:36] LABS: Chol/HDL Ratio 3.69 %
--- NOTE | 2021-11-23 18:15 | Electrocardiograph Report ---
[facility] Test Date: 2021-11-23 Test Time: 08:51:03 Pat Name: JEANMARIE TREADWELL Department: Room: Gender: M [employer] Supervisor: AF : 1965 Requested By: ED DOC Order Number: [id number] Reading MD: Jeff Bates Measurements Intervals [place] Rate: 78 P: 64 [place]: 204 QRS: 83 QRSD: 154 T: QT: 505 QTc: 575 Interpretive Statements Very poor quality ECG Sinus rhythm Right bundle branch block Abnrm T, consider ischemia, anterolateral lds Prolonged QT interval Compared to ECG 07/19/2021 07:06:22 No significant change Electronically Signed On 11-23-2021 18:15:20 EDT by Jeff Bates
[2021-11-23] MEDS ORDERED: cloNIDine 0.2 MG TAB PO ONE (21:49)
[2021-11-23] MEDS ORDERED: FUROSEMIDE 40 MG/4 ML INJ IV ONE (22:03)
--- NOTE | 2021-11-23 22:09 | Emergency Department Report ---
HPI - General Chief Complaint: Chest Pain Time Seen by Provider: 11/23/21 21:48 - HPI HPI: Room 3 The patient is a 56-year-old male present with chief complaint of shortness of breath. Patient states for the past 2 days he has had shortness of breath w henever he sits or lies down and with exertion. Patient admits to an occasional cough and states he only has rib and chest pain when he coughs. The patient states he has been vaccinated against COVID receiving 2 Pfizer doses last year. The patient states he has been given a diagnosis of CHF but is not currently on any diuretics. ED Past Medical Hx - Past Medical History Hx Hypertension: Yes Hx Heart Attack/AMI: Yes (2019 2 stents placed) Hx Congestive Heart Failure: Yes (Cardiomyopathy) Hx Diabetes: Yes Hx GERD: Yes Hx Renal Disease: Yes (ckd stage 3) Hx Psychiatric Treatment: Yes (depression) Additional medical history: elevated cholesterol,neuropathy,insomnia - Surgical History Hx Coronary Stent: Yes (2 stents) Additional Surgical History: stent, T 7-11 back surgery, c4-5 surgery - Family History Family history: no significant - Social History Smoking Status: Current Every Day Smoker (1/3 pack/day) Substance Use Type: None (Denies illicit drug use), Alcohol (Moderate) - Medications Home Medications: Home Medications Medication Instructions Recorded Confirmed Last Taken Type Atorvastatin [Lipitor] 80 mg PO HS 07/18/21 07/19/21 07/13/21 History Nitroglycerin [Nitrostat] 0.4 mg SL PRN PRN 07/18/21 07/19/21 6 Months Ago History ~01/18/21 Prasugrel HCl [Effient] 10 mg PO DAILY 07/18/21 07/19/21 07/13/21 History Cholecalciferol (Vitamin D3) 50,000 unit PO QWEEK 07/19/21 07/19/21 07/11/21 History [Vitamin D3 50,000UNIT CAP] Hydralazine HCl 50 mg PO BID 07/19/21 07/19/21 07/13/21 History Isosorbide Dinitrate 30 mg PO QDAY 07/19/21 07/19/21 07/13/21 History Losartan/Hydrochlorothiazide 1 each PO QDAY 07/19/21 07/19/21 07/13/21 History [Losartan-Hctz 100-25 mg Tab] Omeprazole 20 mg PO QDAY 07/19/21 07/19/21 07/13/21 History amLODIPine 10 mg PO DAILY 07/19/21 07/19/21 07/13/21 History carvediloL [Coreg] 12.5 mg PO BID 07/19/21 07/19/21 07/13/21 History metFORMIN [Glucophage] 500 mg PO QDAY 07/19/21 07/19/21 07/13/21 History Azithromycin [Zithromax TAB] 500 mg PO QDAY@2200 #4 tablet 07/20/21 Unknown Rx Cyclobenzaprine HCl [Flexeril 5 MG 5 mg PO TID #14 tab 10/10/21 Unknown Rx TAB] ED Review of Systems ROS: Stated complaint: SOB/CHF/COUGH/CHEST PAIN Other details as noted in HPI Constitutional: no symptoms reported Eyes: denies: eye pain ENT: denies: throat pain Respiratory: cough, shortness of breath Cardiovascular: as per HPI Endocrine: no symptoms reported Gastrointestinal: denies: abdominal pain Genitourinary: denies: dysuria Musculoskeletal: denies: back pain Neurological: denies: headache Physical Exam - Physical Exam Vital Signs: Vital Signs 11/23/21 11/23/21 08:31 21:40 Temperature 98.5 F 99.0 F Pulse Rate 70 76 Respiratory 18 16 Rate Blood Pressure 207/128 Blood Pressure 187/112 [Left] O2 Sat by Pulse 98 95 Oximetry Physical Exam: GENERAL: The patient is well-developed well-nourished male lying on stretcher not appear to be in acute distress. [] HEENT: Normocephalic. Atraumatic. Extraocular motions are intact. Patient has moist mucous membranes. NECK: Supple. Trachea midline CHEST/LUNGS: Crackles at the bases right greater than left. There is no respiratory distress noted. HEART/CARDIOVASCULAR: Regular. There is no tachycardia. There is no gallop rub or murmur. ABDOMEN: Abdomen is soft, nontender. Patient has normal bowel sounds. There is no abdominal distention. SKIN: There is no rash. There is trace to 1+ bilateral lower extremity pitting edema. There is no diaphoresis. NEURO: The patient is awake, alert, and oriented. The patient is cooperative. The patient has no focal neurologic deficits. The patient has normal speech and gait. GCS 15 MUSCULOSKELETAL: There is no evidence of acute injury. ED Course Vital Signs 11/23/21 11/23/21 08:31 21:40 Temperature 98.5 F 99.0 F Pulse Rate 70 76 Respiratory 18 16 Rate Blood Pressure 207/128 Blood Pressure 187/112 [Left] O2 Sat by Pulse 98 95 Oximetry ED Medical Decision Making - Lab Data Result diagrams: 11/23/21 09:26 11/23/21 09:26 Laboratory Tests 11/23/21 11/23/21 11/23/21 09:26 09:26 09:26 WBC 6.2 RBC 4.23 Hgb 11.8 Hct 35.3 L MCV 84 MCH 28 MCHC 33 RDW 14.8 Plt Count 162 Lymph % (Auto) 18.4 [place] % (Auto) 9.2 H Eos % (Auto) 2.9 Baso % (Auto) 0.8 Lymph # (Auto) 1.1 L [place] # (Auto) 0.6 Eos # (Auto) 0.2 Baso # (Auto) 0.1 Seg Neutrophils % 68.7 Seg Neutrophils # 4.3 PT 13.4 INR 0.92 APTT 42.4 H Sodium 143 Potassium 4.0 Chloride 107.9 H Carbon Dioxide 25 Anion Gap 14 BUN 23 H Creatinine 2.0 H Estimated GFR 42 BUN/Creatinine Ratio 12 Glucose 93 Calcium 8.9 Total Bilirubin 1.00 AST 21 ALT 20 Alkaline Phosphatase 77 Troponin T 0.075 H NT-Pro-B Natriuret Pep 79059 H Total Protein 6.5 Albumin 3.9 Albumin/Globulin Ratio 1.5 Triglycerides 92 Cholesterol 155 LDL Cholesterol Direct 96 HDL Cholesterol 42 Cholesterol/HDL Ratio 3.69 - EKG Data -: EKG Interpreted by Me EKG shows normal: sinus rhythm Rate: normal - EKG Data When compared to previous EKG there are: no significant change Interpretation: unchanged when compared t (07/18/2021) - Radiology Data Radiology results: report reviewed (Chest x-ray), image reviewed (Chest x-ray) interpreted by me: Chest x-ray-CHF. [facility] [address] [place] [address] XRay Report Signed Patient: JEANMARIE TREADWELL MR#: [id number] : 1965 Acct:[id number] Age/Sex: 56 / M ADM Date: 11/23/21 Loc: ED Attending Dr: Ordering Physician: ANTONY LANGLEY MD Date of Service: 11/23/21 Procedure(s): XR chest routine 2V Accession Number(s): [id number] cc: ED MD SHIVAM Fluoro Time In Minutes: CHEST 2 VIEWS INDICATION / CLINICAL INFORMATION: Chest Pain. COMPARISON: 07/17/2021 FINDINGS: SUPPORT DEVICES: None. HEART / MEDIASTINUM: Stable mild cardiomegaly LUNGS / PLEURA: There is mild diffuse interstitial prominence throughout both lungs most consistent with interstitial edema. No consolidation, significant pleural effusion or pneumothorax. Previously described patchy airspace disease in the left midlung has resolved. ADDITIONAL FINDINGS: No significant additional findings. IMPRESSION: 1. Mild cardiomegaly and pulmonary vascular congestion is suspected. Signer Name: Adama Gutierrez Jr, MD Signed: 11/23/2021 9:28 AM Workstation Name: [id number] Transcribed By: TTR Dictated By: ADAMA GUTIERREZ JR, MD Electronically Authenticated By: ADAMA GUTIERREZ JR, MD Signed Date/Time: 11/23/21927 DD/ 6 TD/TT: - Differential Diagnosis CHF exacerbation, ACS, pneumonia, COVID-19 Critical care attestation.: If time is entered above; I have spent that time in minutes in the direct care of this critically ill patient, excluding procedure time. ED Disposition Clinical Impression: CHF exacerbation, Renal insufficiency Disposition: ADMITTED INPATIENT Is pt being admited?: Yes Does the pt Need Aspirin: No Condition: Fair Time of Disposition: 22:12 (Care transferred to hospitalist (Dr. Arriaga)) Heart Score - HEART Score History: Slightly suspicious EKG: Non-specific Age: 45-65 Risk factors: 1-2 risk factors Troponin: 1-3x normal limit HEART Score: 4 - EKG Read Time Time EKG Completed: 22:07 EKG Read Time: 22:10
[2021-11-23] MEDS ORDERED: ACETAMINOPHEN 325 MG TAB PO PRN (23:02)
[2021-11-23] MEDS ORDERED: MORPHINE 4 MG/1 ML INJ IV PRN (23:02)
[2021-11-23] MEDS ORDERED: MAGNESIUM HYDROXIDE (MOM) ORAL LIQD UDC PO PRN (23:02)
[2021-11-23] MEDS ORDERED: MORPHINE 2 MG/1 ML INJ IV PRN ×2 (23:02)
[2021-11-23] MEDS ORDERED: DEXTROSE 50% IN WATER (25GM) 50 ML SYRINGE IV PRN (23:02)
[2021-11-23] MEDS ORDERED: ONDANSETRON 4 MG/2 ML INJ IV PRN (23:02)
--- NOTE | 2021-11-23 23:23 | History and Physical Report ---
History of Present Illness Date of examination: 11/23/21 Date of admission: 11/23/2021 Chief complaint: Shortness of Breath History of present illness: 31-year-old male with known history of hypertension, coronary artery disease, CHF, diabetes mellitus and chronic kidney disease presenting to the emergency room today complaining of shortness of breath. Shortness of breath has been ongoing for the past 2 days. Shortness of breath is also said to be worse on minimal exertion. He has had some occasional cough which is nonproductive. He denies any fever or chills, no chest pain, no nausea or vomiting and no abdominal pain. Patient denies any sick contacts and no recent travel. Denies any contact with anyone with COVID-19. He has been vaccinated with 2 doses of [employer] COVID- vaccine. Work-up in the emergency room today, chest x-ray is significant for mild cardiomegaly and pulmonary vascular congestion. Labs significant for BUN of 23 and creatinine of 2.0. Troponin 0.075. BNP 94016 Patient being admitted for CHF exacerbation, acute on chronic renal failure. Past History Past Medical History: acute [place] (S/P 2 stents), diabetes, GERD, heart failure, hypertension, renal failure, other (elevated cholesterol,maddi ropathy,insomnia,depression) Past Surgical History: Other (stent, T 7-11 back surgery, c4-5 surgery) Social history: smoking (Current daily smoker), alcohol abuse (Occasional alcohol) Family history: no significant family history Medications and Allergies Allergies Allergy/AdvReac Type Severity Reaction Status Date / Time No Known Allergies Allergy Verified 11/23/21 08:33 Home Medications Medication Instructions Recorded Confirmed Last Taken Type Atorvastatin [Lipitor] 80 mg PO HS 07/18/21 07/19/21 07/13/21 History Nitroglycerin [Nitrostat] 0.4 mg SL PRN PRN 07/18/21 07/19/21 6 Months Ago History ~01/18/21 Prasugrel HCl [Effient] 10 mg PO DAILY 07/18/21 07/19/21 07/13/21 History Cholecalciferol (Vitamin D3) 50,000 unit PO QWEEK 07/19/21 07/19/21 07/11/21 History [Vitamin D3 50,000UNIT CAP] Hydralazine HCl 50 mg PO BID 07/19/21 07/19/2122 History Isosorbide Dinitrate 30 mg PO QDAY 07/19/21 07/19/21 07/13/21 History Losartan/Hydrochlorothiazide 1 each PO QDAY 07/19/21 07/19/21 07/13/21 History [Losartan-Hctz 100-25 mg Tab] Omeprazole 20 mg PO QDAY 07/19/21 07/19/21 07/13/21 History amLODIPine 10 mg PO DAILY 07/19/21 07/19/21 07/13/21 History carvediloL [Coreg] 12.5 mg PO BID 07/19/21 07/19/21 07/13/21 History metFORMIN [Glucophage] 500 mg PO QDAY 07/19/21 07/19/21 07/13/21 History Azithromycin [Zithromax TAB] 500 mg PO QDAY@2200 #4 tablet 07/20/21 Unknown Rx Cyclobenzaprine HCl [Flexeril 5 MG 5 mg PO TID #14 tab 10/10/21 Unknown Rx TAB] Active Meds: Active Medications Acetaminophen (Acetaminophen 325 Mg Tab) 650 mg PO Q4H PRN PRN Reason: Pain MILD(1-3)/Fever >100.5/LINDSAY Dextrose (Dextrose 50% In Water (25gm) 50 Ml Syringe) 50 ml IV Q30MIN PRN; Protocol PRN Reason: Hypoglycemia Furosemide (Furosemide 40 Mg/4 Ml Inj) 40 mg IV BID@0600,1800 [facility] Heparin Sodium (Porcine) (Heparin 5,000 Unit/1 Ml Vial) 5,000 unit SUB-Q Q8HR [facility] Insulin Human Lispro (Insulin Lispro 100 Unit/Ml) 0 unit SUB-Q ACHS [facility]; Protocol Magnesium Hydroxide (Magnesium Hydroxide (Mom) Oral Liqd Udc) 30 ml PO Q4H PRN PRN Reason: Constipation Morphine Sulfate (Morphine 2 Mg/1 Ml Inj) 2 mg IV Q4H PRN PRN Reason: Pain, Moderate (4-6) Morphine Sulfate (Morphine 4 Mg/1 Ml Inj) 4 mg IV Q4H PRN PRN Reason: Pain , Severe (7-10) Morphine Sulfate (Morphine 2 Mg/1 Ml Inj) 2 mg IV Q5MIN PRN PRN Reason: Chest Pain unrelieved by NTG Ondansetron HCl (Ondansetron 4 Mg/2 Ml Inj) 4 mg IV Q8H PRN PRN Reason: Nausea And Vomiting Sodium Chloride (Sodium Chloride 0.9% 10 Ml Flush Syringe) 10 ml IV BID SUSANNE Sodium Chloride (Sodium Chloride 0.9% 10 Ml Flush Syringe) 10 ml IV PRN PRN PRN Reason: LINE FLUSH Review of Systems Constitutional: no fever, no chills Ears, nose, mouth and throat: no nasal congestion, no sore throat Cardiovascular: no chest pain, no palpitations Respiratory: cough, shortness of breath Gastrointestinal: no abdominal pain, no nausea, no vomiting, no diarrhea Genitourinary Male: no dysuria, no hematuria, no flank pain Musculoskeletal: no neck pain, no low back pain Integumentary: no rash, no pruritis Neurological: no headaches, no change in speech Psychiatric: no anxiety, no depression Endocrine: no polyphagia, no polydipsia, no polyuria, no nocturia Exam - Constitutional Vitals: Temp Pulse Resp BP Pulse Ox 99.0 F 77 16 204/125 98 11/23/21 21:40 11/23/21 22:43 11/23/21 21:40 11/23/21 22:46 11/23/21 22:49 General appearance: Present: no acute distress, well-nourished - EENT Eyes: Present: PERRL, EOM intact. Absent: scleral icterus ENT: hearing intact, clear oral mucosa, dentition normal - Neck Neck: Present: supple, normal ROM - Respiratory Respiratory effort: normal Respiratory: bilateral: rales - Cardiovascular Rhythm: regular Heart Sounds: Present: S1 & S2. Absent: gallop, systolic murmur, diastolic murmur, rub, click - Extremities Extremities: no ischemia, pulses intact, pulses symmetrical, normal temperature, normal color, Full ROM Extremity abnormal: edema (Trace bilateral lower extremity swelling) Peripheral Pulses: within normal limits - Abdominal General gastrointestinal: Present: soft, non-tender, non-distended, normal bowel sounds. Absent: mass - Integumentary Integumentary: Present: clear, warm, dry, normal turgor. Absent: rash - Musculoskeletal Musculoskeletal: strength equal bilaterally - Psychiatric Psychiatric: appropriate mood/affect, intact judgment & insight, memory intact - Neurologic Neurologic: CNII-XII intact, no focal deficits, moves all extremities HEART Score - HEART Score EKG: Non-specific Age: 45-65 Risk factors: 1-2 risk factors Troponin: Troponin T 0.075 ng/mL (0.00-0.029) H 11/23/21 09:26 Troponin: 1-3x normal limit Results - Labs CBC & Chem 7: 11/23/21 09:26 11/23/21 09:26 Labs: Abnormal lab results 11/23/21 11/23/21 11/23/21 Range/Units 09: 09:26 09:26 Hct 35.3 L (35.5-45.6) % [place] % (Auto) 9.2 H (0.0-7.3) % Lymph # (Auto) 1.1 L (1.2-5.4) K/mm3 APTT 42.4 H (24.2-36.6) Sec. Chloride 107.9 H (98-107) mmol/L BUN 23 H (9-20) mg/dL Creatinine 2.0 H (0.8-1.3) mg/dL Troponin T 0.075 H (0.00-0.029) ng/mL NT-Pro-B Natriuret Pep 56559 H (0-900) pg/mL Assessment and Plan Assessment: 1.CHF Exacerbation 2.Hypertensive Emergency 3.Acute on chronic CKD 4.GERD 5.D/Mellitus Plan 1.Admitted and placed on Diuretics 2.Monitor input and output. Monitor daily weight 3.Resume routine home medications 4.Placed on Sliding scale insulin. Monitor accuchecks. DVT prophylaxis:SQ heparin Code Status: Full Code
[2021-11-24] MEDS: HEPARIN 5,000 UNIT/1 ML VIAL SUB-Q SCH ×3 (07:26→22:44)
[2021-11-24] MEDS: FUROSEMIDE 40 MG/4 ML INJ IV SCH ×2 (07:26→17:37)
--- NOTE | 2021-11-24 07:29 | Consultation ---
History of Present Illness - Reason for Consult Consult date: 11/24/21 acute renal failure Past History Past Medical History: acute [place] (S/P 2 stents), diabetes, GERD, heart failure, hypertension, renal failure, other (elevated cholesterol,neuropathy,insomnia,depression) Past Surgical History: Other (stent, T 7-11 back surgery, c4-5 surgery) Social history: smoking (Current daily smoker), alcohol abuse (Occasional alcohol) Family history: no significant family history Medications and Allergies Allergies Allergy/AdvReac Type Severity Reaction Status Date / Time No Known Allergies Allergy Verified 11/23/21 08:33 Home Medications Medication Instructions Recorded Confirmed Last Taken Type Atorvastatin [Lipitor] 80 mg PO HS 07/18/21 07/19/21 07/13/21 History Nitroglycerin [Nitrostat] 0.4 mg SL PRN PRN 07/18/21 07/19/21 6 Months Ago History ~01/18/21 Prasugrel HCl [Effient] 10 mg PO DAILY 07/18/21 07/19/21 07/13/21 History Cholecalciferol (Vitamin D3) 50,000 unit PO QWEEK 07/19/21 07/19/21 07/11/21 History [Vitamin D3 50,000UNIT CAP] Hydralazine HCl 50 mg PO BID 07/19/21 07/19/21 07/13/21 History Isosorbide Dinitrate 30 mg PO QDAY 07/19/21 07/19/21 07/13/21 History Losartan/Hydrochlorothiazide 1 each PO QDAY 07/19/21 07/19/21 07/13/21 History [Losartan-Hctz 100-25 mg Tab] Omeprazole 20 mg PO QDAY 07/19/21 07/19/21 07/13/21 History amLODIPine 10 mg PO DAILY 07/19/21 07/19/21 07/13/21 History carvediloL [Coreg] 12.5 mg PO BID 07/19/21 07/19/21 07/13/21 History metFORMIN [Glucophage] 500 mg PO QDAY 07/19/21 07/19/21 07/13/21 History Azithromycin [Zithromax TAB] 500 mg PO QDAY@2200 #4 tablet 07/20/21 Unknown Rx Cyclobenzaprine HCl [Flexeril 5 MG 5 mg PO TID #14 tab 10/10/21 Unknown Rx TAB] Active Meds: Active Medications Acetaminophen (Acetaminophen 325 Mg Tab) 650 mg PO Q4H PRN PRN Reason: Pain MILD(1-3)/Fever >100.5/LINDSAY Dextrose (Dextrose 50% In Water (25gm) 50 Ml Syringe) 50 ml IV Q30MIN PRN; Protocol PRN Reason: Hypoglycemia Furosemide (Furosemide 40 Mg/4 Ml Inj) 40 mg IV BID@0600,1800 [facility] Heparin Sodium (Porcine) (Heparin 5,000 Unit/1 Ml Vial) 5,000 unit SUB-Q Q8HR [facility] Insulin Human Lispro (Insulin Lispro 100 Unit/Ml) 0 unit SUB-Q ACHS [facility]; Protocol Magnesium Hydroxide (Magnesium Hydroxide (Mom) Oral Liqd Udc) 30 ml PO Q4H PRN PRN Reason: Constipation Morphine Sulfate (Morphine 2 Mg/1 Ml Inj) 2 mg IV Q4H PRN PRN Reason: Pain, Moderate (4-6) Morphine Sulfate (Morphine 4 Mg/1 Ml Inj) 4 mg IV Q4H PRN PRN Reason: Pain , Severe (7-10) Morphine Sulfate (Morphine 2 Mg/1 Ml Inj) 2 mg IV Q5MIN PRN PRN Reason: Chest Pain unrelieved by NTG Ondansetron HCl (Ondansetron 4 Mg/2 Ml Inj) 4 mg IV Q8H PRN PRN Reason: Nausea And Vomiting Sodium Chloride (Sodium Chloride 0.9% 10 Ml Flush Syringe) 10 ml IV BID SUSANNE Sodium Chloride (Sodium Chloride 0.9% 10 Ml Flush Syringe) 10 ml IV PRN PRN PRN Reason: LINE FLUSH Exam - Vital Signs Vital signs: Vital Signs Temp Pulse Resp BP Pulse Ox 98.5 F 70 18 187/112 98 11/23/21 08:31 11/23/21 08:31 11/23/21 08:31 11/23/21 08:31 11/23/21 08:31 Results - Lab Results 11/23/21 09:26 11/23/21 09:26 Most recent lab results Calcium 8.9 mg/dL (8.4-10.2) 11/23/21 09:26
[2021-11-24] MEDS ORDERED: hydrALAZINE 20 MG/1 ML INJ IV PRN (08:00)
[2021-11-24] MEDS ORDERED: hydrALAZINE 25 MG TAB PO SCH (08:30)
[2021-11-24] MEDS ORDERED: carvediloL 12.5 MG TAB PO SCH (08:30)
[2021-11-24] MEDS: INSULIN LISPRO 100 UNIT/ML SUB-Q SCH ×4 (09:07→22:43)
[2021-11-24] MEDS ORDERED: NON-FORMULARY EACH (Hydralazine Hcl [Hydralazine Hcl] 50 MG Tablet) PO SCH (10:00)
[2021-11-24] MEDS ORDERED: ISOSORBIDE DINITRATE 30 MG PO SCH (10:00)
[2021-11-24] MEDS: amLODIPine 10 MG TAB PO SCH (10:09)
--- NOTE | 2021-11-24 12:38 | Event Note ---
Date: 11/24/21 This patient was consulted on by Dr. Live of [facility], just 2 months ago. Please refer to his service for continued cardiac care.
--- NOTE | 2021-11-24 14:34 | Progress Note ---
Assessment and Plan 1. Acute on chronic systolic CHF Exacerbation 2.Hypertensive Emergency 3.Acute on chronic CKD III, due to cardiorenal syndrome 4.GERD 5.D/Mellitus Plan 1.Admitted and placed on Diuretics 2.Monitor input and output. Monitor daily weight 3.Resume routine home medications 4.Placed on Sliding scale insulin. Monitor accuchecks. DVT prophylaxis:SQ heparin Code Status: Full Code Subjective Date of service: 11/24/21 Objective - Constitutional Vitals: Vital Signs - 12hr 11/24/21 11/24/21 11/24/21 02:46 03:00 03:16 Temperature Pulse Rate Respiratory Rate Blood Pressure 149/87 168/99 151/85 O2 Sat by Pulse 89 90 88 Oximetry 11/24/21 11/24/21 11/24/21 03:30 03:46 04:00 Temperature Pulse Rate Respiratory Rate Blood Pressure 149/87 155/97 151/85 O2 Sat by Pulse 89 89 93 Oximetry 11/24/21 11/24/21 11/24/21 04:16 04:30 04:46 Temperature Pulse Rate Respiratory Rate Blood Pressure 150/92 150/92 149/90 O2 Sat by Pulse 90 95 96 Oximetry 11/24/21 11/24/21 11/24/21 05:00 05:16 05:30 Temperature Pulse Rate Respiratory Rate Blood Pressure 149/90 147/84 147/84 O2 Sat by Pulse 93 93 95 Oximetry 11/24/21 11/24/21 11/24/21 05:40 05:50 06:09 Temperature Pulse Rate Respiratory Rate Blood Pressure 147/84 143/88 143/88 O2 Sat by Pulse 98 95 Oximetry 11/24/21 11/24/21 11/24/21 06:49 08:05 10:08 Temperature 98.7 F Pulse Rate 57 L 59 L Respiratory 18 18 Rate Blood Pressure 181/108 166/107 O2 Sat by Pulse 98 96 Oximetry 11/24/21 11/24/21 10:09 11:53 Temperature 98.3 F Pulse Rate 59 L 53 L Respiratory 22 Rate Blood Pressure 166/107 171/105 O2 Sat by Pulse 93 Oximetry - Labs CBC & Chem 7: 11/23/21 09:26 11/25/21 05:58 Labs: Abnormal lab results 11/23/21 Range/Units 09:26 Chloride 107.9 H (98-107) mmol/L BUN 23 H (9-20) mg/dL Creatinine 2.0 H (0.8-1.3) mg/dL Troponin T 0.075 H (0.00-0.029) ng/mL NT-Pro-B Natriuret Pep 55790 H (0-900) pg/mL HEART Score - HEART Score EKG: Non-specific Age: 45-65 Risk factors: 1-2 risk factors Troponin: Troponin T 0.075 ng/mL (0.00-0.029) H 11/23/21 09:26 Troponin: 1-3x normal limit
--- NOTE | 2021-11-24 15:15 | Consultation ---
History of Present Illness Consult date: 11/24/21 Requesting physician: SEGUN BALDERAS Consult reason: congestive heart failure History of present illness: Patient is a 56-year-old male, known to our practice and follows with Dr. Espinoza, with past medical history of CAD, status PCI/PTCA, CKD, hypertension, diabetes, hyperlipidemia, who presented to the ER after experiencing sudden development of shortness of breath x1 day. Patient reports that he recently traveled due the of the family member and recently returned. Patient reports that suddenly on Sunday he developed shortness of breath and dyspnea on exertion. Patient also reports orthopnea. Patient reports that over the last couple of weeks due to the loss of family member he has not been compliant with his medications, diet, or fluid restrictions. In the ED patient was found to h ave elevated BNP, elevated creatinine and minimally elevated troponins. CXR shows pulmonary vascular congestion. Patient denies chest pain, nausea, vomiting, diaphoresis, palpitations. Patient does report orthopnea cardiology was consulted for CHF. Past History Past Medical History: acute [place] (S/P 2 stents), diabetes, GERD, heart failure, hypertension, renal failure, other (elevated cholesterol,neuropathy,insomnia,depression) Past Surgical History: Other (stent, T 7-11 back surgery, c4-5 surgery) Social history: smoking (Current daily smoker), alcohol abuse (Occasional alcohol) Family history: no significant family history Medications and Allergies Allergies Allergy/AdvReac Type Severity Reaction Status Date / Time No Known Allergies Allergy Verified 11/23/21 08:33 Home Medications Medication Instructions Recorded Confirmed Last Taken Type Atorvastatin [Lipitor] 80 mg PO HS 07/18/21 11/24/21 11/22/21 22:00 History Nitroglycerin [Nitrostat] 0.4 mg SL PRN PRN 07/18/21 11/24/21 6 Months Ago History ~01/18/21 Prasugrel HCl [Effient] 10 mg PO DAILY 07/18/21 11/24/21 11/23/21 07:30 History Hydralazine HCl 50 mg PO BID 07/19/21 11/24/21 11/23/21 07:30 History Losartan/Hydrochlorothiazide 1 each PO QDAY 07/19/21 11/24/21 11/23/21 07:30 History [Losartan-Hctz 100-25 mg Tab] Omeprazole 20 mg PO QDAY 07/19/21 11/24/21 11/23/21 07:30 History amLODIPine 10 mg PO DAILY 07/19/21 11/24/21 11/23/21 07:30 History carvediloL [Coreg] 25 mg PO BID 07/19/21 11/24/21 11/23/21 07:30 History metFORMIN [Glucophage] 500 mg PO QDAY 07/19/21 11/24/21 11/22/21 22:00 History Active Meds: Active Medications Acetaminophen (Acetaminophen 325 Mg Tab) 650 mg PO Q4H PRN PRN Reason: Pain MILD(1-3)/Fever >100.5/LINDSAY Amlodipine Besylate (Amlodipine 10 Mg Tab) 10 mg PO DAILY [facility] Last Admin: 11/24/21 10:09 Dose: 10 mg Atorvastatin Calcium (Atorvastatin 40 Mg Tab) 80 mg PO QHS [facility] Dextrose (Dextrose 50% In Water (25gm) 50 Ml Syringe) 50 ml IV Q30MIN PRN; Protocol PRN Reason: Hypoglycemia Furosemide (Furosemide 40 Mg/4 Ml Inj) 40 mg IV BID@0600,1800 [facility] Last Admin: 11/24/21 07:26 Dose: 40 mg Heparin Sodium (Porcine) (Heparin 5,000 Unit/1 Ml Vial) 5,000 unit SUB-Q Q8HR [facility] Last Admin: 11/24/21 13:35 Dose: 5,000 unit Hydralazine HCl (Hydralazine 20 Mg/1 Ml Inj) 10 mg IV Q4HR PRN PRN Reason: Blood Pressure Insulin Human Lispro (Insulin Lispro 100 Unit/Ml) 0 unit SUB-Q ACHS [facility]; Protocol Last Admin: 11/24/21 12:39 Dose: Not Given Magnesium Hydroxide (Magnesium Hydroxide (Mom) Oral Liqd Udc) 30 ml PO Q4H PRN PRN Reason: Constipation Morphine Sulfate (Morphine 2 Mg/1 Ml Inj) 2 mg IV Q4H PRN PRN Reason: Pain, Moderate (4-6) Morphine Sulfate (Morphine 4 Mg/1 Ml Inj) 4 mg IV Q4H PRN PRN Reason: Pain , Severe (7-10) Morphine Sulfate (Morphine 2 Mg/1 Ml Inj) 2 mg IV Q5MIN PRN PRN Reason: Chest Pain unrelieved by NTG Ondansetron HCl (Ondansetron 4 Mg/2 Ml Inj) 4 mg IV Q8H PRN PRN Reason: Nausea And Vomiting Sodium Chloride (Sodium Chloride 0.9% 10 Ml Flush Syringe) 10 ml IV BID SUSANNE Last Admin: 11/24/21 10:10 Dose: 10 ml Sodium Chloride (Sodium Chloride 0.9% 10 Ml Flush Syringe) 10 ml IV PRN PRN PRN Reason: LINE FLUSH Review of Systems Constitutional: no weight loss, no weight gain Cardiovascular: orthopnea, shortness of breath, dyspnea on exertion, leg edema, no chest pain Respiratory: shortness of breath, dyspnea on exertion Gastrointestinal: no abdominal pain, no nausea, no vomiting Musculoskeletal: no neck stiffness, no neck pain, no shooting arm pain Integumentary: no rash, no pruritis, no redness Neurological: no head injury, no transient paralysis Psychiatric: no anxiety, no memory loss Endocrine: no cold intolerance, no heat intolerance Physical Examination Vital Signs Temp Pulse Resp BP Pulse Ox 98.5 F 70 18 187/112 98 11/23/21 08:31 11/23/21 08:31 11/23/21 08:31 11/23/21 08:31 11/23/21 08:31 General appearance: no acute distress HEENT: Positive: PERRL Neck: Positive: trachea midline Cardiac: Positive: Reg Rate and Rhythm Lungs: Positive: Rhonchi Neuro: Positive: Grossly Intact Abdomen: Positive: Soft Skin: Negative: Rash, Suspicious Lesions, Ulceration Extremities: Present: upper extr. pulses, edema Results 11/23/21 09:26 11/23/21 09:26 Cardiac Enzymes 11/23/21 Range/Units 09:26 AST 21 (5-40) units/L Lipids 11/23/21 Range/Units 09:26 Triglycerides 92 (2-149) mg/dL Cholesterol 155 (50-199) mg/dL HDL Cholesterol 42 (40-59) mg/dL Cholesterol/HDL Ratio 3.69 % Comprehensive Metabolic Panel 11/23/21 Range/Units 09:26 Sodium 143 (137-145) mmol/L Potassium 4.0 (3.6-5.0) mmol/L Chloride 107.9 H (98-107) mmol/L Carbon Dioxide 25 (22-30) mmol/L BUN 23 H (9-20) mg/dL Creatinine 2.0 H (0.8-1.3) mg/dL Glucose 93 (75-100) mg/dL Calcium 8.9 (8.4-10.2) mg/dL AST 21 (5-40) units/L ALT 20 (7-56) units/L Alkaline Phosphatase 77 (35-129) units/L Total Protein 6.5 (6.3-8.2) g/dL Albumin 3.9 (3.9-5) g/dL - Imaging and Cardiology Echo: report reviewed EKG: report reviewed, image reviewed EKG interpretations - Telemetry EKG Rhythm: Sinus Rhythm - EKG Sinus rhythms and dysrhythmias: sinus rhythm AV and intraventricular conduction: right bundle branch block Assessment and Plan Patient is a 56-year-old male, known to our practice and follows with Dr. Espinoza, with past medical history of CAD, status PCI/PTCA, CKD, hypertension, diabetes, hyperlipidemia, who presented to the ER after experiencing sudden development of shortness of breath x1 day Acute on chronic HFpEF RADHA on CKD-nephrology following Hypertension Diabetes Hyperlipidemia Coronary artery disease Echocardiogram -07/18/21: Left ventricle is borderline dilated. Mild concentric left ventricular hypertrophy. Left ventricular systolic function is borderline. There is hypokinesis in the inferior wall. LVEF is 45 to 50%. Left atrium is moderately dilated. Trace to mild mitral regurg. Trace tricuspid regurg. The RSVP is 22 mmHg MPI stress test 07/18/2021-no scintigraphic evidence of ischemia moderately decreased LV systolic Cath- 06/2017-- 1. RCA: Distal 100% stenosis status post EUGENE 2. ramus: 50% stenosis. 3. Left circumflex artery: Diffusely diseased vessel 70% stenosis 4. EF of 45 to 50% Outpatient medications carvedilol 25 mg p.o. twice daily, amlodipine 10 mg p.o. daily, atorvastatin 80 mg p.o. nightly, hydralazine 100 mg p.o. twice daily, hydrochlorothiazidelosartan 25 mg - 100 mg p.o. daily, Effient 10 mg p.o. daily Plan: EKG shows sinus rhythm with right bundle branch block with abnormal T. Troponin is minimally elevated. Patient denies any complaints of chest pain Suspect elevated troponin in setting of acute CHF and RADHA on CKD Resume outpatient medication Will hold losartan at this time due to renal function Agree with diuresis is okay with nephrology due to patient's renal function Strict I&O's, daily weights, repeat BMP in the a.m. with close monitoring of renal function Plan of care discussed with patient who verbalized understanding and acknowledge d Patient seen in conjunction with Dr. Live who agrees with this plan of care - Patient Problems (1) Acute kidney injury superimposed on CKD Current Visit: Yes Status: Acute (2) CAD (coronary artery disease) Current Visit: Yes Status: Acute (3) Acute HFrEF (heart failure with reduced ejection fraction) Current Visit: No Status: Acute (4) Hypertension Current Visit: No Status: Acute (5) Shortness of breath on exertion Current Visit: No Status: Acute (6) Type 2 diabetes mellitus with diabetic chronic kidney disease Current Visit: No Status: Acute
--- NOTE | 2021-11-24 15:37 | Ultrasound Report ---
ULTRASOUND RENAL INDICATION / CLINICAL INFORMATION: Acute renal failure.. COMPARISON: None available. FINDINGS: RIGHT KIDNEY: Length = 10.9 cm. - Echogenicity: Mildly echogenic. - Parenchymal Thickness: Normal. - Hydronephrosis: None. - Cyst / Mass: None. - Stones: None seen. LEFT KIDNEY: Length = 9.8 cm. - Echogenicity: Mildly echogenic. - Parenchymal Thickness: Mild thinning. - Hydronephrosis: None. - Cyst / Mass: None. - Stones: None seen. URINARY BLADDER: No significant abnormality. FREE FLUID: None. ADDITIONAL FINDINGS: None. IMPRESSION: 1. No acute sonographic abnormality. 2. Findings suggestive of bilateral medical renal disease. Scribed by: Vannesa Aguilar RDMS, VINCENTT, NANDO Scribed: 11/24/2021 1:42 PM I have reviewed the images, agree with this report, and edited this report as needed. Signer Name: Luis Melgoza MD Signed: 11/24/2021 3:33 PM Workstation Name: [employer]
[2021-11-24] MEDS: hydrALAZINE 100 MG TAB PO SCH ×3 (16:10→22:43)
[2021-11-24] MEDS: carvediloL 25 MG TAB PO SCH ×2 (16:14→22:43)
[2021-11-24] MEDS ORDERED: NON-FORMULARY EACH (Atorvastatin [Lipitor] 80 MG Tablet) PO SCH (22:00)
[2021-11-25 06:40] LABS: Calcium 8.7 mg/dL (8.4-10.2)
[2021-11-25] MEDS: FUROSEMIDE 40 MG/4 ML INJ IV SCH (06:40)
[2021-11-25] MEDS: HEPARIN 5,000 UNIT/1 ML VIAL SUB-Q SCH (06:40)
[2021-11-25] MEDS: INSULIN LISPRO 100 UNIT/ML SUB-Q SCH ×2 (09:13→12:45)
[2021-11-25] MEDS: amLODIPine 10 MG TAB PO SCH (09:14)
[2021-11-25] MEDS: hydrALAZINE 100 MG TAB PO SCH (09:14)
[2021-11-25] MEDS: carvediloL 25 MG TAB PO SCH (09:14)
[2021-11-25] MEDS ORDERED: hydroCHLOROthiazide 25 MG TAB PO SCH (10:00)
[2021-11-25] MEDS ORDERED: PRASUGREL 10 MG TAB PO SCH (10:00)
--- NOTE | 2021-11-25 10:34 | Consultation ---
History of Present Illness - Reason for Consult acute renal failure - History of Present Illness This is a very pleasant 56-year-old -[place] male with a past medical history of chronic kidney disease stage IIIa in the setting of hypertension and diabetes along with history of coronary artery disease, who is well-known to our office as he sees my colleague Dr. Murray, who presented to the emergency department secondary to worsening shortness of breath on exertion. Chest x-ray concerning for worsening pulmonary edema and CHF exacerbation. Nephrology consulted for concerns of acute on chronic kidney injury. Patient has been diuresed appropriately and is symptomatically much better than when first admitted. He is currently on room air and has been able to ambulate outside of the room without any signs of shortness of breath on exertion. He has no swelling at this time in his lower extremities either. No other complaints this time and labs do show stabilization of his renal function back to his baseline. When last seen in our office back in July of this year his BUN/creatinine was 2 9/1.8 mg/dL with estimated GFR 47 mL/min. Past History Past Medical History: acute ND (S/P 2 stents), diabetes, GERD, heart failure, hypertension, renal failure, other (elevated cholesterol,neuropathy,insomnia,depression) Past Surgical History: Other (stent, T 7-11 back surgery, c4-5 surgery) Social history: smoking (Current daily smoker), alcohol abuse (Occasional alcohol) Family history: no significant family history Medications and Allergies Allergies Allergy/AdvReac Type Severity Reaction Status Date / Time No Known Allergies Allergy Verified 11/23/21 08:33 Home Medications Medication Instructions Recorded Confirmed Last Taken Type Atorvastatin [Lipitor] 80 mg PO HS 07/18/21 11/24/21 11/22/21 22:00 History Nitroglycerin [Nitrostat] 0.4 mg SL PRN PRN 07/18/21 11/24/21 6 Months Ago History ~01/18/21 Prasugrel HCl [Effient] 10 mg PO DAILY 07/18/21 11/24/21 11/23/21 07:30 History Hydralazine HCl 50 mg PO BID 07/19/21 11/24/21 11/23/21 07:30 History Losartan/Hydrochlorothiazide 1 each PO QDAY 07/19/21 11/24/21 11/23/21 07:30 History [Losartan-Hctz 100-25 mg Tab] Omeprazole 20 mg PO QDAY 07/19/21 11/24/21 11/23/21 07:30 History amLODIPine 10 mg PO DAILY 07/19/21 11/24/21 11/23/21 07:30 History carvediloL [Coreg] 25 mg PO BID 07/19/21 11/24/21 11/23/21 07:30 History metFORMIN [Glucophage] 500 mg PO QDAY 07/19/21 11/24/21 11/22/21 22:00 History Active Meds: Active Medications Acetaminophen (Acetaminophen 325 Mg Tab) 650 mg PO Q4H PRN PRN Reason: Pain MILD(1-3)/Fever >100.5/LINDSAY Amlodipine Besylate (Amlodipine 10 Mg Tab) 10 mg PO DAILY [facility] [place] Last Admin: 11/25/21 09:14 Dose: 10 mg Atorvastatin Calcium (Atorvastatin 40 Mg Tab) 80 mg PO QHS [facility] [place] Last Admin: 11/24/21 22:43 Dose: 80 mg Carvedilol (Carvedilol 25 Mg Tab) 25 mg PO BID [facility] Last Admin: 11/25/21 09:14 Dose: 25 mg Dextrose (Dextrose 50% In Water (25gm) 50 Ml Syringe) 50 ml IV Q30MIN PRN; Protocol PRN Reason: Hypoglycemia Furosemide (Furosemide 40 Mg/4 Ml Inj) 40 mg IV BID@0600,1800 [facility] [place] [place] Last Admin: 11/25/21 06:40 Dose: 40 mg Heparin Sodium (Porcine) (Heparin 5,000 Unit/1 Ml Vial) 5,000 unit SUB-Q Q8HR [facility] [place] Last Admin: 11/25/21 06:40 Dose: 5,000 unit Hydralazine HCl (Hydralazine 20 Mg/1 Ml Inj) 10 mg IV Q4HR PRN PRN Reason: Blood Pressure Hydralazine HCl (Hydralazine 100 Mg Tab) 100 mg PO BID [facility] [place] Last Admin: 11/25/21 09:14 Dose: 100 mg Hydrochlorothiazide (Hydrochlorothiazide 25 Mg Tab) 25 mg PO QDAY [facility] [place] Last Admin: 11/25/21 09:14 Dose: 25 mg Insulin Human Lispro (Insulin Lispro 100 Unit/Ml) 0 unit SUB-Q ACHS [facility] [place]; Protocol Last Admin: 11/25/21 09:13 Dose: Not Given Magnesium Hydroxide (Magnesium Hydroxide (Mom) Oral Liqd Udc) 30 ml PO Q4H PRN PRN Reason: Constipation Morphine Sulfate (Morphine 2 Mg/1 Ml Inj) 2 mg IV Q4H PRN PRN Reason: Pain, Moderate (4-6) Morphine Sulfate (Morphine 4 Mg/1 Ml Inj) 4 mg IV Q4H PRN PRN Reason: Pain , Severe (7-10) Morphine Sulfate (Morphine 2 Mg/1 Ml Inj) 2 mg IV Q5MIN PRN PRN Reason: Chest Pain unrelieved by NTG Ondansetron HCl (Ondansetron 4 Mg/2 Ml Inj) 4 mg IV Q8H PRN PRN Reason: Nausea And Vomiting Prasugrel (Prasugrel 10 Mg Tab) 10 mg PO QDAY SUSANNE Sodium Chloride (Sodium Chloride 0.9% 10 Ml Flush Syringe) 10 ml IV BID SUSANNE Last Admin: 11/25/21 09:15 Dose: 10 ml Sodium Chloride (Sodium Chloride 0.9% 10 Ml Flush Syringe) 10 ml IV PRN PRN PRN Reason: LINE FLUSH Review of Systems All systems: negative Constitutional: fatigue, weakness Cardiovascular: orthopnea, dyspnea on exertion Exam - Vital Signs Vital signs: Vital Signs Temp Pulse Resp BP Pulse Ox 98.5 F 70 18 187/112 98 11/23/21 08:31 11/23/21 08:31 11/23/21 08:31 11/23/21 08:31 11/23/21 08:31 - General Appearance General appearance: well-developed, appears stated age EENT: ATNC Neck: Present: neck supple Respiratory: Clear to Ascultation Heart: regular, normal heart rate Gastrointestinal: Present: normal Integumentary: no rash, warm and dry Neurologic: no focal deficit, alert and oriented x3 Musculoskeletal: Present: deferred Psychiatric: cooperative Results - Lab Results 11/23/21 09:26 11/25/21 05:58 Most recent lab results Calcium 8.7 mg/dL (8.4-10.2) 11/25/21 05:58 Assessment and Plan - Patient Problems (1) Acute kidney injury superimposed on CKD Current Visit: Yes Status: Acute Plan to address problem: In the setting of fluid overload and acute congestive heart failure. Renal function has stabilized at this time with appropriate diuresis and volume management Avoid all nephrotoxins and maintain mean arterial pressures above 65 mmHg. Renal function essentially is at his baseline at present time. From nephrology standpoint he is stable for discharge and would instruct him to follow-up with Dr. Murray in approximately 1 to 2 weeks. I do think that he should be discharged on Lasix 40 mg once a day until he is seen by Dr. Murray in the office for further management and titration. (2) Acute HFrEF (heart failure with reduced ejection fraction) Current Visit: No Status: Acute Plan to address problem: Patient appropriately diuresing with Lasix 40 mg IV twice daily. Excellent urine output noted. No acute issues or symptoms at this time. I do believe he is stable for discharge and would recommend that he be discharged on Lasix 40 mg once a day until he is seen by Dr. Murray in the outpatient setting. Counseled patient on the importance of maintaining a low-sodium diet. (3) Hypertension Current Visit: No Status: Acute Plan to address problem: Monitor blood pressures under current regimen. I counseled patient on importance of maintaining a low-sodium diet and appropriate fluid restrictions. (4) Type 2 diabetes mellitus with diabetic chronic kidney disease Current Visit: No Status: Acute Plan to address problem: Diabetes management per primary attending.
[2021-11-25 10:52] VITALS: BP 168/101
--- NOTE | 2021-11-25 11:45 | Progress Note ---
Assessment and Plan Patient is a 56-year-old male, known to our practice and follows with Dr. Espinoza, with past medical history of CAD, status PCI/PTCA, CKD, hypertension, diabetes, hyperlipidemia, who presented to the ER after experiencing sudden development of shortness of breath x1 day Acute on chronic HFpEF RADHA on CKD-nephrology following Hypertension Diabetes Hyperlipidemia Coronary artery disease Echocardiogram -07/18/21: Left ventricle is borderline dilated. Mild concentric left ventricular hypertrophy. Left ventricular systolic function is borderline. There is hypokinesis in the inferior wall. LVEF is 45 to 50%. Left atrium is moderately dilated. Trace to mild mitral regurg. Trace tricuspid regurg. The RSVP is 22 mmHg MPI stress test 07/18/2021-no scintigraphic evidence of ischemia moderately decreased LV systolic Cath- 06/2017-- 1. RCA: Distal 100% stenosis status post EUGENE 2. ramus: 50% stenosis. 3. Left circumflex artery: Diffusely diseased vessel 70% stenosis 4. EF of 45 to 50% Outpatient medications carvedilol 25 mg p.o. twice daily, amlodipine 10 mg p.o. daily, atorvastatin 80 mg p.o. nightly, hydralazine 100 mg p.o. twice daily, hydrochlorothiazidelosartan 25 mg - 100 mg p.o. daily, Effient 10 mg p.o. daily Plan: Patient reports feeling significant better. Patient appears to have had significant urine output Patient appears euvolemic on exam with no bilateral lower extremity edema and lungs clear to auscultation. Patient further reports no shortness of breath Per nephrology okay for patient to be on Lasix 40 mg p.o. daily Resume outpatient medication Had long conversation with patient about the importance of medication compliance, diet compliance, fluid restriction, smoking cessation. Patient verbalized understanding and acknowledgment Cardiac status otherwise stable for discharge Plan of care discussed with patient who verbalized understanding and acknowledged Patient has a follow-up appointment with Dr. Espinoza, [facility] network desktop support specialist, on 12/07/2021 at 3:15 PM in our [place] location. Phone #[phone] Patient seen in conjunction with Dr. Live who agrees with this plan of care - Patient Problems (1) Acute kidney injury superimposed on CKD Current Visit: Yes Status: Acute (2) CAD (coronary artery disease) Current Visit: Yes Status: Acute (3) Acute HFrEF (heart failure with reduced ejection fraction) Current Visit: No Status: Acute (4) Hypertension Current Visit: No Status: Acute (5) Shortness of breath on exertion Current Visit: No Status: Acute (6) Type 2 diabetes mellitus with diabetic chronic kidney disease Current Visit: No Status: Acute Subjective Date of service: 11/25/21 Principal diagnosis: RADHA on CKD, HFpEF Interval history: Patient resting in bed in no acute distress. Patient reports feeling significantly better this a.m. Sinus upper 50s to 60s on monitor with no events Objective Vital Signs Temp Pulse Resp BP Pulse Ox 11/25/21 10:52 60 16 100 11/25/21 09:13 168/101 11/25/21 03:49 98.0 F 56 L 18 147/87 93 11/24/21 22:43 61 188/106 11/24/21 22:38 98.7 F 61 17 188/106 95 11/24/21 20:00 17 96 11/24/21 16:14 57 L 11/24/21 16:11 97.7 F 57 L 22 171/110 99 11/24/21 11:53 98.3 F 53 L 22 171/105 93 - Physical Examination General: No Apparent Distress HEENT: Positive: PERRL Neck: Positive: neck supple Cardiac: Positive: Reg Rate and Rhythm Lungs: Positive: Normal Breath Sounds Neuro: Positive: Grossly Intact Abdomen: Positive: Soft Skin: Negative: Rash, Suspicious Lesions, Ulceration Extremities: Present: upper extr. pulses. Absent: edema - Labs and Meds Comprehensive Metabolic Panel 11/24/21 11/25/21 Range/Units 15:45 05:58 Sodium 144 143 (137-145) mmol/L Potassium 4.4 3.4 L D (3.6-5.0) mmol/L Chloride 102.0 102.1 (98-107) mmol/L Carbon Dioxide 29 29 (22-30) mmol/L BUN 25 H 24 H (9-20) mg/dL Creatinine 2.0 H 1.8 H (0.8-1.3) mg/dL Glucose 107 H 105 H (75-100) mg/dL Calcium 9.0 8.7 (8.4-10.2) mg/dL - Imaging and Cardiology EKG: report reviewed, image reviewed Echo: report reviewed - Telemetry EKG Rhythm: Sinus Rhythm - EKG Sinus rhythms and dysrhythmias: sinus rhythm AV and intraventricular conduction: right bundle branch block
--- NOTE | 2021-11-25 11:48 | Discharge Summary ---
Providers - Providers Date of Admission: 11/23/21 23:03 Date of discharge: 11/25/21 Attending physician: DEVI VERMA 11/23/21 23:02 Consult to Physician [CONS] Routine Comment: Consulting Provider: KATY MAYNARD Physician Instructions: Reason For Exam: ACUTE ON CHRONIC RENAL FAILURE 11/23/21 23:03 Consult to Dietitian/Nutrition [CONS] Routine Physician Instructions: Reason For Exam: Reason for Consult: Diet education 11/24/21 12:42 Consult to Physician [CONS] Routine Comment: Consulting Provider: ADRIAN ROSE Physician Instructions: Reason For Exam: CHF Primary care physician: CONTRACT ADMINISTRATION MANAGER Hospitalization Condition: Fair Hospital course: 56-year-old -[place] male with a past medical history of chronic kidney disease stage IIIa in the setting of hypertension and diabetes along with history of coronary artery disease. presented to the emergency department secondary to worsening shortness of breath on exertion. Chest x-ray concerning for worsening pulmonary edema and CHF exacerbation. Nephrology consulted for concerns of acute on chronic kidney injury. Patient has been diuresed appr opriately and is symptomatically much better than when first admitted. He is currently on room air and has been able to ambulate outside of the room without any signs of shortness of breath on exertion. He has no swelling at this time in his lower extremities either. No other complaints this time and labs do show stabilization of his renal function back to his baseline. he was discharged home in stable condition with outpt followup. Disposition: 30 STILL A PATIENT Final Discharge Diagnosis (Prints w/discharge instructions): 1. Acute on chronic systolic CHF Exacerbation. 2.Hypertensive Emergency. 3.Acute on chronic CKD III, due to cardiorenal syndrome. 4.GERD. 5.D/Mellitus Time spent for discharge: 34 minutes Core Measure Documentation - Palliative Care Palliative Care/ Comfort Measures: Not Applicable - Core Measures Any of the following diagnoses?: heart failure - Heart Failure Discharge Requirements MICHAELA/ARB for LVSD if EF <40%: Yes Beta precious at discharge: Yes Exam - Constitutional Vitals: Temp Pulse Resp BP Pulse Ox 98.0 F 60 16 168/101 100 11/25/21 03:49 11/25/21 10:52 11/25/21 10:52 11/25/21 09:13 11/25/21 10:52 General appearance: Present: no acute distress, well-nourished - EENT Eyes: Present: PERRL ENT: hearing intact, clear oral mucosa - Neck Neck: Present: supple, normal ROM - Respiratory Respiratory effort: normal Respiratory: bilateral: CTA - Cardiovascular Heart Sounds: Present: S1 & S2. Absent: rub, click - Extremities Extremities: pulses symmetrical Extremity abnormal: edema (trace ) Peripheral Pulses: within normal limits - Abdominal General gastrointestinal: Present: soft, non-tender, non-distended, normal bowel sounds - Integumentary Integumentary: Present: clear, warm, dry - Musculoskeletal Musculoskeletal: gait normal, strength equal bilaterally - Psychiatric Psychiatric: appropriate mood/affect, intact judgment & insight - Neurologic Neurologic: CNII-XII intact, moves all extremities Plan Activity: advance as tolerated, fall precautions Weight Bearing Status: Non-Weight Bearing Diet: low fat, low salt, diabetic Special Instructions: restrict fluid intake to (1.2L daily ) Follow up with: PRIMARY CAREMD [Primary Care Provider] - 3-5 Days KATY MAYNARD MD [Staff Physician] - 7 Days KAYDEN CHAWLA MD [Staff Physician] - 7 Days Prescriptions: Furosemide [Lasix TAB] 40 mg PO QDAY #30 tablet
== END 2021-11-25 13:26 | disposition home or self-care (01) | DRG 291 ==
LOC: ED 08:20 → 3A 23:03
PROVIDERS: ADMIT Internal Medicine Geriatric Medicine; ATTEND Internal Medicine
DX: I13.0 Hypertensive heart and chronic kidney disease with heart failure and stage 1 through stage 4 chronic kidney disease, or unspecified chronic kidney disease (principal); I50.23 Acute on chronic systolic (congestive) heart failure; N17.9 Acute kidney failure, unspecified; I16.1 Hypertensive emergency; Z20.822 Contact with and (suspected) exposure to COVID-19; E11.22 Type 2 diabetes mellitus with diabetic chronic kidney disease; K21.9 Gastro-esophageal reflux disease without esophagitis; E78.5 Hyperlipidemia, unspecified; I25.10 Atherosclerotic heart disease of native coronary artery without angina pectoris; I42.9 Cardiomyopathy, unspecified; I25.2 Old myocardial infarction; N18.30 Chronic kidney disease, stage 3 unspecified; F32.A Depression, unspecified; E11.40 Type 2 diabetes mellitus with diabetic neuropathy, unspecified; F17.200 Nicotine dependence, unspecified, uncomplicated; Z79.84 Long term (current) use of oral hypoglycemic drugs; Z79.899 Other long term (current) drug therapy
CPT/HCPCS: 36415; 71046; 76770; 80048; 80053; 80061; 82962; 83880; 84484; 85025; 85610; 85730; 87641; 93005; 99406; G0378; J1644; J1940; U0003